=== PATIENT | female | born 1975 | race Caucasian/White ===

== ENCOUNTER 2020-07-14 08:48 | Emergency (ER) | payer OTHER ==
[~2020-07-14] VITALS: Ht 165.1 cm; Wt 72.6 kg
[2020-07-14] MEDS ORDERED: XANAX2 MG PO (09:02)
[2020-07-14] MEDS ORDERED: IBUPROFEN 800800 M1 PO (09:12)
[2020-07-14] MEDS ORDERED: FLEXERIL PO (09:12)
[2020-07-14] MEDS ORDERED: PREDNISONE50 MG PO (09:12)
[2020-07-14] MEDS ORDERED: HYDROCODON-ACE1 EAC7 PO (09:12)
[2020-07-14 09:16] VITALS: BP 140/94
== END 2020-07-14 09:17 | disposition home or self-care (01) ==
LOC: M.ERS 08:48
DX: M25.512 Pain in left shoulder (principal); M54.2 Cervicalgia